=== PATIENT | female | born 1955 | race Caucasian/White ===

== ENCOUNTER 2024-12-21 01:33 | Emergency (ER) | payer MEDICARE, OTHER ==
[~2024-12-21] VITALS: Ht 162.6 cm; Wt 99.8 kg
[2024-12-21 01:35] VITALS: TEMP 98.7
[2024-12-21 02:06] LABS: BASOPHILS % 0.5 % (0.0-1.0); EOSINOPHILS % 1.0 % (0.0-6.0); LYMPHOCYTES % 19.1 % (18.0-39.1); MONOCYTES % 7.8 % (4.4-11.3); NEUTROPHILS % 71.3 % (38.7-80.0); RED CELL DISTRIBUTION WIDTH 12.8 % (11.7-14.4)
[2024-12-21] MEDS: KETOROLAC TROMETHAMINE 30 MG/ML VIAL IV STA (02:16)
[2024-12-21 02:27] LABS: EST GLOMERULAR FILTRATION RATE 61.0 ML/MIN (>=60)
[2024-12-21] MEDS: DEXAMETHASONE SOD PHOS 10 MG/1 ML VIAL IV ONE (02:30)
[2024-12-21] MEDS: SODIUM CHLORIDE 0.9% 1000ML 1,000 ML IV SCH (02:30)
[2024-12-21] MEDS: ALBUTEROL/IPRATROPIUM 3 ML NEB NEB ONE (02:34)
[2024-12-21 02:35] VITALS: PULSE 101; RESP 24; O2SAT 98
[2024-12-21] MEDS ORDERED: DOXYCYCLINE HY100 MG PO (03:06)
[2024-12-21] MEDS ORDERED: VENTOLIN HFA18 GM INH (03:07)
[2024-12-21 03:30] VITALS: PULSE 96; RESP 24
[2024-12-21 03:46] VITALS: BP 130/62; PULSE 102; RESP 20; O2SAT 96
== END 2024-12-21 03:50 | disposition home or self-care (01) ==
LOC: ER 01:39
DX: R06.02 Shortness of breath (principal); J44.1 Chronic obstructive pulmonary disease with (acute) exacerbation; R05.9 Cough, unspecified; R94.31 Abnormal electrocardiogram [ECG] [EKG]; I10 Essential (primary) hypertension
CPT/HCPCS: 36415; 71046; 80048; 84484; 85025; 93005; 94640; 94799; 99284; J1100; J1885; J7030